=== PATIENT | female | born 1965 | race Hispanic/Latino ===

== ENCOUNTER 2021-11-10 19:08 | Emergency (ER) | payer BC, OTHER ==
[2021-11-10] MEDS ORDERED: Ketorolac Tromethamine 30 MG/ML VIAL ONE (21:12)
== END 2021-11-10 23:33 ==
LOC: ERS 19:08
DX: S60.222A Contusion of left hand, initial encounter (principal); S60.221A Contusion of right hand, initial encounter; M25.532 Pain in left wrist; M25.531 Pain in right wrist; M25.562 Pain in left knee; I10 Essential (primary) hypertension; M19.90 Unspecified osteoarthritis, unspecified site; W10.9XXA Fall (on) (from) unspecified stairs and steps, initial encounter
CPT/HCPCS: 70450; 72125; 96372; J1885